=== PATIENT | male | born 1980 | race Two or more races ===

== ENCOUNTER 2017-05-29 18:08 | Emergency (ER) | payer MEDICAID ==
[~2017-05-29] VITALS: Ht 170.2 cm; Wt 80.3 kg
[2017-05-29 18:11] VITALS: BP 126/84
[2017-05-29] MEDS ORDERED: LIDOCAINE 1%, 20ML ONE (20:18)
[2017-05-29] MEDS ORDERED: LIDOCAINE 1%, 10ML INFIL ONE (20:30)
== END 2017-05-29 21:03 | disposition home or self-care (01) ==
LOC: ED 20:50
DX: M67.431 Ganglion, right wrist (principal)
CPT/HCPCS: 20605; 73110; 99284; J3490

== ENCOUNTER 2018-11-04 11:03 | Emergency (ER) | payer SELFPAY ==
[~2018-11-04] VITALS: Ht 170.2 cm; Wt 71.8 kg
[2018-11-04 11:24] VITALS: BP 136/82
== END 2018-11-04 12:37 | disposition home or self-care (01) ==
LOC: ED 12:33
DX: L02.415 Cutaneous abscess of right lower limb (principal); L03.115 Cellulitis of right lower limb
CPT/HCPCS: 10160; 99284